=== PATIENT | male | born 1940 | race Caucasian/White ===

== ENCOUNTER 2021-02-20 11:18 | Emergency (ER) | payer BC, MEDICARE ==
[~2021-02-20] VITALS: Ht 172.7 cm; Wt 96.5 kg
[~2021-02-20 11:18] MED LIST: BACDS PO; CEPH-357 PO
[2021-02-20 11:34] VITALS: BP 153/78
[2021-02-20] MEDS ORDERED: AZIT250T PO (13:15)
== END 2021-02-20 13:29 | disposition home or self-care (01) ==
LOC: ER 11:19
DX: R05.9 Cough, unspecified (principal); Z20.822 Contact with and (suspected) exposure to COVID-19; R09.81 Nasal congestion; E78.00 Pure hypercholesterolemia, unspecified; E11.9 Type 2 diabetes mellitus without complications; Z98.890 Other specified postprocedural states; Z79.2 Long term (current) use of antibiotics
CPT/HCPCS: 71045; 87635; 99284; C9803